=== PATIENT | male | born 1955 | race Caucasian/White ===

== ENCOUNTER 2017-11-20 08:38 | Emergency (ER) | payer MEDICARE, OTHER, SELFPAY ==
[2017-11-20 08:39] VITALS: BP 137/68; PULSE 78; RESP 20; TEMP 36.7; O2SAT 97; BMI 32.8
--- NOTE | 2017-11-20 09:07 | ED.EXTPRO ---
HPI - Extremity Problem General Chief complaint: Extremity Problem,Nontraumatic Stated complaint: THINKS SOMEONE POISONED FOOD Time Seen by Provider: 11/20/17 08:43 Source: patient and RN notes reviewed Mode of arrival: ambulatory Limitations: no limitations History of Present Illness HPI Narrative: Patient is a 61-year-old male presents with a variety of complaints. His he feels over in fatigue he has been sleeping a lot more lately. Legs are swollen. He also feels like he may be within with arsenic. He does have some rambling speech but does not seem overly paranoid. He is clean and well dressed. He has no other complaints no chest pain shortness of breath on fevers. Related Data Home Medications Medication Instructions Recorded Confirmed amlodipine 10 mg PO QAM 11/20/17 11/20/17 clobetasol 1 applic TOPICAL BID 11/20/17 11/20/17 fluticasone 1 applic INTRANASAL DAILY 11/20/17 11/20/17 fluticasone-salmeterol [Advair 1 applic INHALATION QAM 11/20/17 11/20/17 Diskus] mupirocin 1 applic TOPICAL BID 11/20/17 11/20/17 Allergies Allergy/AdvReac Type Severity Reaction Status Date / Time No Known Drug Allergies Allergy Verified 11/20/17 09:50 Review of Systems Review of Systems All systems reviewed & are unremarkable except as noted in HPI and below Constitutional Denies chills, Denies fever(s), Reports lethargy, Reports malaise, Denies night sweats and Reports weakness Cardiovascular Denies chest pain, Denies irregular heart rhythm, Denies lightheadedness, Denies palpitations, Denies dyspnea, Denies dyspnea on exertion and Denies orthopnea Respiratory Denies cough, Denies dyspnea, Denies dyspnea on exertion and Denies wheezing Gastrointestinal Gastrointestinal: Denies abdominal pain, Denies change in bowel habits, Denies diarrhea, Denies nausea and Denies vomiting Musculoskeletal Denies back pain, Denies muscle weakness, Denies numbness and Denies tingling Neurologic Denies numbness, Denies tingling and Reports weakness Endocrine Denies palpitations Allergic/Immunologic Denies wheezing PFSH Medical History COPD (chronic obstructive pulmonary disease) (Acute) Hypertension (Acute) Surgical History History of tonsillectomy and adenoidectomy (Acute) Social History Smoking Status: Former smoker Exam Initial Vital Signs Initial Vital Signs: Vital Signs Temperature 98.0 F 11/20/17 08:39 Pulse Rate 78 11/20/17 08:39 Respiratory Rate 20 11/20/17 08:39 Blood Pressure 137/68 H 11/20/17 08:39 Pulse Oximetry 97 11/20/17 08:39 Const General: cooperative and well developed Nutritional Appearance: well nourished Orientation: alert, awake, oriented x3 and not confused HENMI Head: normal to inspection Ears: hearing grossly normal bilaterally Neck Neck: normal visual inspection, full ROM and no meningeal signs Chest Chest: normal inspection of the chest Resp Effort & Inspection: normal respiratory effort, able to speak in complete sentences, no respiratory distress and no use of accessory muscles Auscultation: clear to auscultation bilaterally, no rales, no rhonchi and no wheezes Cardio Rate: regular rate Rhythm: regular rhythm Heart Sounds: no click, no gallops, no murmurs and no rubs Pulses: normal peripheral pulses GI Inspection: non-distended Palpation: soft, no hepatosplenomegaly, No guarding, No pulsatile mass and No tender Auscultation: normal bowel sounds Skin General: erythema (Minimal on left leg chronic no streaking) Lesions: lesion noted (Left lower leg has multiple healing wounds which are chronic. Minimal erythema) Psych Appearance: grossly normal Speech and Movement: pressured speech (slightly) Mood: paranoid (Feels like he is being poisoned) Affect: normal affect Attitude: cooperative Thought Content: no hallucinations, no homicidality, no obsessions and suicidality Judgment: judgment good Course Orders Ordered: ED Orders 11/20/17 09:09 Rapid Drug Screen, Urine Stat Urinalysis and Microscopic Stat 11/20/17 09:17 Complete Blood Count AUTO DIFF Stat Comprehensive Metabolic Panel Stat Procalcitonin Stat Vital Signs - 8 hr 11/20/17 08:39 11/20/17 09:20 11/20/17 10:29 Temperature 98.0 F Pulse Rate 78 87 Pulse Rate [Bilateral Dorsalis Pedis] 80 Respiratory Rate 20 20 Blood Pressure 137/68 H 130/72 H Pulse Oximetry 97 94 MDM - Extremity (Nontraumatic) Lab Data Attestation: I reviewed the patient's lab results. Result diagrams: 11/20/17 09:17 11/20/17 09:17 Lab Results 11/20/17 11/20/17 11/20/17 Range/Units 09:09 09:09 09:17 WBC 10.9 (4.5-11.0) X10^3/uL RBC 5.18 (4.5-5.9) X10^6/uL Hgb 15.8 (13.5-17.5) g/dL Hct 45.2 (41-53) % MCV 87.3 (80-100) fL MCH 30.5 (26-34) PG MCHC 34.9 (30-36) % RDW 12.8 (11.6-14.8) % Plt Count 323 (150-400) X10^3/uL Neut % (Auto) 59.4 (50-75) % Lymph % (Auto) 22.6 L (25-40) % Donley % (Auto) 14.7 H (3-14) % Eos % (Auto) 2.8 (2-4) % Baso % (Auto) 0.5 (0-2) % Neut # (Auto) 6500 H (7733-3505) /uL Sodium (137-145) mmol/L Potassium (3.4-5.1) mmol/L Chloride (98-107) mmol/L Carbon Dioxide (22-32) mmol/L BUN (9-20) mg/dL Creatinine (0.66-1.25) mg/dL Estimated GFR (>60) mL/min BUN/Creatinine Ratio (6-22) Glucose (70-100) mg/dL Calcium (8.4-10.2) mg/dL Total Bilirubin (0.2-1.3) mg/dL AST (17-59) IU/L ALT (21-72) IU/L Alkaline Phosphatase (38-126) U/L Total Protein (6.3-8.2) g/dL Albumin (3.5-5.0) g/dL Globulin (1.7-4.1) g/dL Albumin/Globulin Ratio (1.0-2.8) Procalcitonin (<0.5) ng/mL Urine Color Yellow Urine Appearance Clear Urine pH 7.5 (4.5-8.0) Ur Specific Stacy 1.015 (1.000-1.035) Urine Protein Negative (Negative) Urine Glucose (UA) Negative (Negative) g/dL Urine Ketones Negative (NEGATIVE) Urine Occult Blood Negative (Negative) Urine Nitrate Negative (Negative) Urine Bilirubin Negative (NEGATIVE) Urine Urobilinogen 1.0 (0.2) E.U./dL Ur Leukocyte Esterase Negative (NEGATIVE) Urine RBC None seen (0-5/HPF) Urine WBC None seen (0-5/HPF) Urine Bacteria Occasional (0-1) (None) Ur Culture Indicated? Cult not indicated Micro UA Comment Not Reportable Urine Opiates Screen Positive H (Negative) Ur Oxycodone Screen Positive H (Negative) Urine Methadone Screen Negative (Negative) Ur Barbiturates Screen Negative (Negative) U Tricyclic Antidepress Negative (Negative) Ur Phencyclidine Scrn Negative (Negative) Ur Amphetamines Screen Negative (Negative) U Methamphetamines Scrn Negative (Negative) Ur MDMA Scrn (Ecstasy) Negative (Negative) U Benzodiazepines Scrn Negative (Negative) Urine Cocaine Screen Negative (Negative) U Marijuana (THC) Screen Negative (Negative) 11/20/17 11/20/17 Range/Units 09:17 09:17 WBC (4.5-11.0) X10^3/uL RBC (4.5-5.9) X10^6/uL Hgb (13.5-17.5) g/dL Hct (41-53) % MCV (80-100) fL MCH (26-34) PG MCHC (30-36) % RDW (11.6-14.8) % Plt Count (150-400) X10^3/uL Neut % (Auto) (50-75) % Lymph % (Auto) (25-40) % Donley % (Auto) (3-14) % Eos % (Auto) (2-4) % Baso % (Auto) (0-2) % Neut # (Auto) (1744-9199) /uL Sodium 141 (137-145) mmol/L Potassium 3.6 (3.4-5.1) mmol/L Chloride 96.0 L (98-107) mmol/L Carbon Dioxide 33.0 H (22-32) mmol/L BUN 14.0 (9-20) mg/dL Creatinine 0.60 L (0.66-1.25) mg/dL Estimated GFR > 60.0 (>60) mL/min BUN/Creatinine Ratio 23.3 H (6-22) Glucose 100 (70-100) mg/dL Calcium 9.6 (8.4-10.2) mg/dL Total Bilirubin 1.0 (0.2-1.3) mg/dL AST 39 (17-59) IU/L ALT 53 (21-72) IU/L Alkaline Phosphatase 110 (38-126) U/L Total Protein 8.3 H (6.3-8.2) g/dL Albumin 4.5 (3.5-5.0) g/dL Globulin 3.8 (1.7-4.1) g/dL Albumin/Globulin Ratio 1.2 (1.0-2.8) Procalcitonin < 0.05 (<0.5) ng/mL Urine Color Urine Appearance Urine pH (4.5-8.0) Ur Specific Stacy (1.000-1.035) Urine Protein (Negative) Urine Glucose (UA) (Negative) g/dL Urine Ketones (NEGATIVE) Urine Occult Blood (Negative) Urine Nitrate (Negative) Urine Bilirubin (NEGATIVE) Urine Urobilinogen (0.2) E.U./dL Ur Leukocyte Esterase (NEGATIVE) Urine RBC (0-5/HPF) Urine WBC (0-5/HPF) Urine Bacteria (None) Ur Culture Indicated? Micro UA Comment Urine Opiates Screen (Negative) Ur Oxycodone Screen (Negative) Urine Methadone Screen (Negative) Ur Barbiturates Screen (Negative) U Tricyclic Antidepress (Negative) Ur Phencyclidine Scrn (Negative) Ur Amphetamines Screen (Negative) U Methamphetamines Scrn (Negative) Ur MDMA Scrn (Ecstasy) (Negative) U Benzodiazepines Scrn (Negative) Urine Cocaine Screen (Negative) U Marijuana (THC) Screen (Negative) MDM Narrative Medical decision making narrative: He is slightly paranoid but this is not seem to be disabling him. Blood work is within normal limits. Lower extremities appear chronic and stable this is compared to previous notes exams. The patient is clinically sober, free from distracting injury, appears to have intact insight, judgment and reason. Does not meet criteria for involuntary hospitalization. Patient has the capacity to make decisions. I have given patient blood result. Also notified him that we do not test for arsenic. He understands he is agreeable to go. He denies any suicidal or homicidal ideation. 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 Discharge Plan Departure Patient Disposition: Home, Self-Care Clinical Impression: Lower extremity edema Discharge Date/Time: 11/20/17 10:31 Interventions: ED Discharge Assessment Last Done: 11/20/17 10:29 Instructions: DI for Peripheral Edema -- Bilateral Activity Restrictions/Additional Instructions: *You have been diagnosed with lower extremity edema *What to do: if you want further testing please discussed with your primary care provider. blood work today does not show any sign of infection or abnormality *Take medications as directed *Follow up with your primary care provider in 2-3 days *Return to ER if you should have any new, worsening or concerning symptoms Prescriptions: No Action amlodipine 10 mg tablet 10 mg PO QAM RF: 0 fluticasone-salmeterol [Advair Diskus] 500-50 mcg/dose blister with device 1 applic Inhalation QAM RF: 0 mupirocin 2 % ointment 1 applic Topical BID RF: 0 clobetasol 0.05 % ointment 1 applic Topical BID RF: 0 fluticasone 50 mcg/actuation spray,suspension 1 applic Intranasal DAILY RF: 0 Referrals: Brooke Lynn MD [Primary Care Provider] -
[2017-11-20 09:20] VITALS: PULSE 80
[2017-11-20 09:26] LABS: Add Manual Diff / Slide Review NO; Basophils Percent Auto 0.5 % (0-2); Eosinophils Percent Auto 2.8 % (2-4); Hematocrit 45.2 % (41-53); Hemoglobin 15.8 g/dL (13.5-17.5); Lymphocytes Percent Auto 22.6 % (25-40); Mean Corpuscular HGB Conc 34.9 % (30-36); Mean Corpuscular Hemoglobin 30.5 PG (26-34); Mean Corpuscular Volume 87.3 fL (80-100); Monocytes Percent Auto 14.7 % (3-14); Neutrophils Absolute Auto 6500 /uL (3000-5900); Neutrophils Percent Auto 59.4 % (50-75); Platelet Count 323 X10^3/uL (150-400); Red Blood Cell Count 5.18 X10^6/uL (4.5-5.9); Red Cell Distribution Width 12.8 % (11.6-14.8); White Blood Cell Count 10.9 X10^3/uL (4.5-11.0)
--- NOTE | 2017-11-20 09:30 | PC.NURSE ---
Pt laughing and interactive but states he feels restless and prefers to walk outside 'where the weather is good'. Verbalized he would wait to leave until labs came back. Encouraged to return to ED for any difficulty.
[2017-11-20 09:35] LABS: RBC Urine None Seen (0-5/HPF); WBC Urine None Seen (0-5/HPF)
[2017-11-20 09:36] LABS: Alanine Aminotransferase 53 IU/L (21-72); Albumin 4.5 g/dL (3.5-5.0); Albumin Globulin Ratio 1.2 (1.0-2.8); Alkaline Phosphatase 110 U/L (38-126); Aspartate Aminotransferase 39 IU/L (17-59); BUN Creatinine Ratio 23.3 (6-22); Calcium 9.6 mg/dL (8.4-10.2); Estimated Glomerular Filt Rate > 60.0 mL/min (>60); Globulin 3.8 g/dL (1.7-4.1); Glucose 100 mg/dL (70-100); HEMOLYSIS 18 (0-50); Potassium 3.6 mmol/L (3.4-5.1); Sodium 141 mmol/L (137-145); Total Protein 8.3 g/dL (6.3-8.2)
[2017-11-20 09:41] LABS: Appearance Urine UA CLEAR; Bilirubin Urine UA NEGATIVE (NEGATIVE); Color Urine UA YELLOW; Glucose Urine UA NEGATIVE (Negative); Ketones Urine UA NEGATIVE (NEGATIVE); Leukocyte Esterase Urine UA NEGATIVE (NEGATIVE); Nitrite Urine UA Negative (Negative); Occult Blood Urine UA NEGATIVE (Negative); Protein Urine UA NEGATIVE (Negative); Specific Gravity Urine UA 1.015 (1.000-1.035); pH Urine UA 7.5 (4.5-8.0)
[2017-11-20 09:43] LABS: Urine Amphetamines Negative (Negative); Urine Barbiturates Negative (Negative); Urine Benzodiazepines Negative (Negative); Urine Cocaine Negative (Negative); Urine MDMA Negative (Negative); Urine Methadone Negative (Negative); Urine Methamphetamines Negative (Negative); Urine Morphine/Opi cutoff 2000 Positive (Negative); Urine Oxycodone Positive (Negative); Urine Phencyclidine Negative (Negative); Urine Tetrahydrocannabinol Negative (Negative); Urine Tricyclic Antidepressant Negative (Negative)
[2017-11-20 09:52] LABS: Procalcitonin < 0.05 ng/mL (<0.5)
[2017-11-20 10:00] LABS: Bacteria Urine Occasional (0-1); Culture Indicated Urine Cult Not Indicated
[2017-11-20 10:29] VITALS: BP 130/72; PULSE 87; RESP 20; O2SAT 94
== END 2017-11-20 10:31 | disposition home or self-care (01) ==
PROVIDERS: Emergency Provider Emergency Medicine; PCP Internal Medicine
DX: R60.0 Localized edema (principal)
CPT/HCPCS: 36415; 80053; 80305; 81001; 84145; 85025; 99283

== ENCOUNTER → 2019-09-07 06:45 | Outpatient (CLI) | payer MEDICARE, OTHER, SELFPAY ==
--- NOTE | 2019-09-07 | DI.RAD.S_ITS ---
PROCEDURE: XR KNEE RT 3V INDICATIONS: bilateral knee pain TECHNIQUE: 3 views of the knee were acquired. COMPARISON: [facility], CR, XR KNEE LT 3V, 09/07/2019, 6:01. FINDINGS: Bones: No fractures or dislocations. No suspicious bony lesions. Soft tissues: No joint effusion. No suspicious soft tissue calcifications. IMPRESSION: Normal for age, source of current right knee pain symptoms is not seen. Dictated by: Daniele Guzman M.D. on 09/07/2019 at 8:21 Approved by: Daniele Guzman M.D. on 09/07/2019 at 8:22
--- NOTE | 2019-09-07 | DI.RAD.S_ITS ---
PROCEDURE: XR KNEE LT 3V INDICATIONS: bilateral knee pain TECHNIQUE: 3 views of the knee were acquired. COMPARISON: [facility], CR, XR KNEE RT 3V, 09/07/2019, 5:59. FINDINGS: Bones: No fractures or dislocations. No suspicious bony lesions. Soft tissues: No joint effusion. No suspicious soft tissue calcifications. IMPRESSION: Normal for age, source of current left knee pain symptoms is not seen. Dictated by: Daniele Guzman M.D. on 09/07/2019 at 8:22 Approved by: Daniele Guzman M.D. on 09/07/2019 at 8:22
== END ==
PROVIDERS: PCP Internal Medicine; Referring Provider Family Medicine; Visit Provider Family Medicine
DX: M25.561 Pain in right knee (principal); M25.562 Pain in left knee
CPT/HCPCS: 73562

== ENCOUNTER 2020-02-28 07:51 | Emergency (ER) | payer MEDICARE, OTHER, SELFPAY ==
[2020-02-28 07:55] VITALS: BP 185/84; PULSE 80; RESP 20; TEMP 36.9; O2SAT 98; BMI 33.6
--- NOTE | 2020-02-28 08:16 | ED.EXTPRO ---
HPI - Extremity Problem General Chief complaint: Extremity Problem,Nontraumatic Stated complaint: something blocking veins in legs Time Seen by Provider: 02/28/20 08:09 Source: patient Mode of arrival: Ambulatory Limitations: no limitations History of Present Illness HPI Narrative: Patient concerned for blood clot in his legs. Ongoing swelling in both legs and feet and ankles for the past year. Does have a primary care physician but has never had any ultrasound of the legs. Denies any previous DVT or PE. Denies any chest pain or dyspnea. Denies any recent injury. No immobilization. Patient states he has been instructed in the past to keep his legs elevated when at rest to reduce edema. Is on Lasix as well. Denies denies any chest pain or dyspnea. Blood pressure noted. Patient does take blood pressure medication. However patient is very energetic and excited and very talkative at this time. Will recheck blood pressure Related Data Home Medications Medication Instructions Recorded Confirmed amlodipine 10 mg PO QAM 11/20/17 11/20/17 clobetasol 1 applic TOPICAL BID 11/20/17 11/20/17 fluticasone propion-salmeterol 1 applic INHALATION QAM 11/20/17 11/20/17 [Advair Diskus] fluticasone propionate 1 applic INTRANASAL DAILY 11/20/17 11/20/17 mupirocin 1 applic TOPICAL BID 11/20/17 11/20/17 Allergies Allergy/AdvReac Type Severity Reaction Status Date / Time No Known Drug Allergies Allergy Verified 11/20/17 09:50 Review of Systems Review of Systems Narrative: GENERAL: Denies chills, fatigue, malaise, fever, sweats. HEENT: Denies sinus pain, ear pain, sore throat, difficulty swallowing, dizziness. RESPIRATORY: Denies dyspnea, cough, wheezing, hemoptysis, sputum. CARDIOVASCULAR: Denies chest pain, palpitations, orthopnea, complains of leg edema GASTROINTESTINAL: Denies nausea, vomiting, abdominal pain, diarrhea, constipation, melena. : Denies dysuria, frequency, incontinence, hematuria, urinary retention. MUSCULOSKELETAL: denies weakness, joint pain, or bony pain SKIN: Denies rash, skin lesions, or other NEUROLOGIC: Denies weakness, headache, numbness, change in speech, confusion, seizures, incoordination. PSYCHIATRIC: No concerning psychosocial issues. ROS Unobtainable: All systems reviewed & are unremarkable except as noted in HPI and below Patient History Medical History COPD (chronic obstructive pulmonary disease) (Acute) Hypertension (Acute) Surgical History History of tonsillectomy and adenoidectomy (Acute) Social History Smoking Status: Former smoker Smoking Status: Former smoker Substance Use Type: does not use Exam Narrative Exam Narrative: GENERAL: patient appears stated age. Well-nourished, well-developed patient, in no distress, not toxic, patient wearing shorts. Shoes and socks off HEAD: Atraumatic. Normocephalic. EYES: Pupils equal round and reactive. Extraocular motions intact. No scleral icterus. No injection or drainage. ENT: Nose without bleeding, purulent drainage. Throat without erythema, tonsillar hypertrophy or exudate. Airway patent. NECK: Trachea midline. Non tender CARDIOVASCULAR: Regular rate and rhythm without murmurs, gallops, or rubs. RESPIRATORY: Clear to auscultation. Breath sounds equal bilaterally. No wheezes, rales, or rhonchi. GASTROINTESTINAL: Abdomen soft, non-tender, nondistended. EXTREMITIES: Bilateral knees to toes exposed. Legs and feet grossly symmetric. No erythema induration/rash. There is 2+ pedal edema at the ankle and feet. Strong bilateral patellar reflexes as well as pedal pulses. No palpable cords on the calf. No pain with Homans or Phillips test. Legs and feet warm soft and pink. Light touch intact in feet and toes. Nontender ankles. Patient uses a cane daily/chronically for chronic low back pain. Able to stand and bear weight and uses his cane as routine. Tested at bedside BACK: Nontender without deformity or crepitance. No flank tenderness. NEURO: AOx3. SKIN: No rash or erythema of visible areas PSYCH: Not anxious, is cooperative Initial Vital Signs Initial Vital Signs: Vital Signs Temperature 98.5 F 02/28/20 07:55 Pulse Rate 80 02/28/20 07:55 Respiratory Rate 20 02/28/20 07:55 Blood Pressure 185/84 H 02/28/20 07:55 Pulse Oximetry 98 02/28/20 07:55 Course Orders Ordered: ED Orders 02/28/20 08:15 US periph venous low extrem bi Stat Reevaluation(s) Reevaluation #1: Spoke with patient results of Doppler. At this time this is chronic ongoing for 1 year and he agrees appropriate for follow-up with family physician. This is not acute. Time: 09:21 Reevaluation #2: Blood pressure improved 141/73, patient much more relaxed Time: 09:54 Vital Signs Vital signs: Vital Signs - 8 hr 02/28/20 07:55 Temperature 98.5 F Pulse Rate 80 Respiratory Rate 20 Blood Pressure 185/84 H Pulse Oximetry 98 MDM - Extremity (Nontraumatic) Differential Diagnosis Differential diagnosis: Likely superficial thrombophlebitis, lower extremity edema and deep vein thrombosis of lower extremity Imaging Data US - DVT: Radiologist's Impression: [address] [address] Ultrasound Report Signed Patient: Ricardo Chen [facility]#: [id number] : 8Acct:[id number] Age/Sex: 64 / MDate of Service: 02/28/20 Loc: ED Accession Number: [id number] Procedure: US periph venous low extrem bi Ordering Provider: Leoncio Garcia MD PROCEDURE: US PERIPH VENOUS LOW EXTREM BI INDICATIONS: EDEMA TECHNIQUE: Real-time imaging, as well as color and pulse Doppler interrogation, were performed of the deep veins of both legs from the inguinal ligament to the popliteal fossa. COMPARISON: None. FINDINGS: Right: The common femoral, femoral and popliteal veins are normally compressible, and free of intraluminal thrombus. Color and pulse Doppler demonstrate normal phasic intravascular flow. There is normal augmentation response to distal compression maneuver. Left: The common femoral, femoral and popliteal veins are normally compressible, and free of intraluminal thrombus. Color and pulse Doppler demonstrate normal phasic intravascular flow. There is normal augmentation response to distal compression maneuver. IMPRESSION: 1. No DVT in either lower extremity. Dictated by: Pat Bolanos M.D. on 02/28/2020 at 9:07 Approved by: Pat Bolanos M.D. on 02/28/2020 at 9:11 MDM Narrative Medical decision making narrative: No blood work indicated this time. Patient for evaluation of blood clot. This is ongoing and chronic. No signs infection Discharge Plan Departure Patient Disposition: Home Clinical Impression: Lower extremity edema Hypertension Qualifiers: Hypertension type: essential hypertension Qualified Code(s): I10 - Essential (primary) hypertension Discharge Date/Time: 02/28/20 10:02 Instructions: DI for Peripheral Edema -- Bilateral Activity Restrictions/Additional Instructions: Please have your blood pressure recheck by your family physician this week. Continue home medications. You may need referral to vascular surgeon by a family physician for swelling in your feet and legs. Return if worse or if any concerns or questions. Prescriptions: No Action amlodipine 10 mg tablet 10 mg PO QAM RF: 0 fluticasone propion-salmeterol [Advair Diskus] 500-50 mcg/dose blister with device 1 applic Inhalation QAM RF: 0 mupirocin 2 % ointment 1 applic Topical BID RF: 0 clobetasol 0.05 % ointment 1 applic Topical BID RF: 0 fluticasone propionate 50 mcg/actuation spray,suspension 1 applic Intranasal DAILY RF: 0 Referrals: Brooke Lynn MD [Primary Care Provider] -
[2020-02-28 10:01] VITALS: BP 141/73; PULSE 86; RESP 18; O2SAT 96
== END 2020-02-28 10:02 | disposition home or self-care (01) ==
PROVIDERS: Emergency Provider Emergency Medicine; PCP Internal Medicine
DX: R60.0 Localized edema (principal); I10 Essential (primary) hypertension
CPT/HCPCS: 93970; 99283

== ENCOUNTER → 2020-03-31 07:18 | Outpatient (CLI) | payer MEDICARE, OTHER, SELFPAY ==
--- NOTE | 2020-03-31 | DI.US.S_ITS ---
PROCEDURE: US PERIP VENOUS LOW EXTREM BI INDICATIONS: PVD TECHNIQUE: Real-time imaging, as well as color and pulse Doppler interrogation, were performed of the deep veins of both legs from the inguinal ligament to the popliteal fossa. COMPARISON: [facility], [facility] VENOUS LOW EXTREM BI, 02/28/2020, 8:49. FINDINGS: Right: The common femoral, femoral and popliteal veins are normally compressible, and free of intraluminal thrombus. Color and pulse Doppler demonstrate normal phasic intravascular flow. There is normal augmentation response to distal compression maneuver. Left: The common femoral, femoral and popliteal veins are normally compressible, and free of intraluminal thrombus. Color and pulse Doppler demonstrate normal phasic intravascular flow. There is normal augmentation response to distal compression maneuver. IMPRESSION: No deep venous thrombosis identified within either the left or right lower extremities. Dictated by: Ryan Coleman [facility] Interpreted: Rosangela Hamilton MD on 03/31/2020 at 10:25 Approved by: Rosangela Hamilton MD, PhD on 03/31/2020 at 11:44
== END ==
PROVIDERS: PCP Family Medicine; Referring Provider Family Medicine; Visit Provider Family Medicine
DX: I73.9 Peripheral vascular disease, unspecified (principal)
CPT/HCPCS: 93970

== ENCOUNTER → 2020-04-07 14:53 | Outpatient (CLI) | payer MEDICARE, OTHER, SELFPAY ==
--- NOTE | 2020-04-07 | DI.US.S_ITS ---
PROCEDURE: US ABDOMEN COMPLETE INDICATIONS: Abnormal results of liver function studies TECHNIQUE: Real-time scanning was performed of the abdominal and retroperitoneal organs, with image documentation. COMPARISON: None. FINDINGS: Liver: Within normal limits in size. Increased in echogenicity. Gallbladder: Nondilated. No stones or sludge. Normal gallbladder wall thickness. No pericholecystic fluid. Negative sonographic Olivares's sign. Biliary ducts: Intrahepatic bile ducts are non-dilated. Extrahepatic bile duct caliber measures 3 mm. Normal is 6-7 mm or less in diameter, or 10 mm or less post-cholecystectomy. Pancreas: Visualized portions of the pancreas are sonographically normal. Spleen: Spleen is normal in size and homogeneous in echotexture. Kidneys: Kidneys are normal in size and echotexture. Right kidney measures 11.9 cm long; left kidney measures 11.9 cm long. No hydronephrosis or nephrolithiasis. No solid masses. Small simple right renal cysts measuring 2.1 cm and 2 cm. Aorta: Visualized aorta is normal in caliber at less than 3 cm. Iliacs: Proximal common iliac arteries are normal in caliber at less than 2.5 cm. IVC: Intrahepatic inferior vena cava is patent. Miscellaneous: No free abdominal fluid. IMPRESSION: 1. Increased hepatic echogenicity most consistent with hepatic steatosis. Other forms of hepatocellular disease could have similar appearance. 2. No acute cholecystitis. No gallstones. 3. No free fluid. Dictated by: Luis Ingram M.D. on 04/07/2020 at 17:16 Approved by: Luis Ingram M.D. on 04/07/2020 at 17:24
== END ==
PROVIDERS: PCP Family Medicine; Referring Provider Family Medicine; Visit Provider Family Medicine
DX: R94.5 Abnormal results of liver function studies (principal); K76.0 Fatty (change of) liver, not elsewhere classified
CPT/HCPCS: 76700

== ENCOUNTER 2020-06-13 07:48 | Emergency (ER) | payer MEDICARE, OTHER, SELFPAY ==
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
[2020-06-13 08:10] VITALS: BP 138/101; PULSE 107; RESP 22; TEMP 37; O2SAT 96; BMI 36.3
--- NOTE | 2020-06-13 08:15 | DI.RAD.S_ITS ---
PROCEDURE: XR CHEST 1V INDICATIONS: leg swelling, TECHNIQUE: One view of the chest was acquired. COMPARISON: [facility], CT, ABDOMEN W&W/O CONTRAST, 03/15/2013, 7:35. FINDINGS: Surgical changes and devices: None. Lungs and pleura: Minimal bibasilar airspace opacity. No pleural effusions or pneumothorax. Mediastinum: Mediastinal contours appear normal. Heart size is prominent. Bones and chest wall: No suspicious bony lesions. Overlying soft tissues appear unremarkable. IMPRESSION: Prominent heart size. No CHF demonstrated. Minimal bibasilar airspace opacity. Favor atelectasis. Dictated by: Luis Ingram M.D. on 06/13/2020 at 7:57 Approved by: Luis Ingram M.D. on 06/13/2020 at 8:00
[2020-06-13 08:39] LABS: Add Manual Diff / Slide Review NO; Basophils Absolute Auto 0 /uL (0-100); Basophils Percent Auto 0.4 % (0-2); Eosinophils Absolute Auto 0 /uL (0-450); Eosinophils Percent Auto 0.2 % (2-4); Hematocrit 48.6 % (41-53); Hemoglobin 16.9 g/dL (13.5-17.5); Lymphocytes Absolute Auto 1300 /uL (1100-4500); Lymphocytes Percent Auto 12.1 % (25-40); Mean Corpuscular HGB Conc 34.7 % (30-36); Mean Corpuscular Hemoglobin 31.1 PG (26-34); Mean Corpuscular Volume 89.4 fL (80-100); Monocytes Absolute Auto 1600 /uL (0-900); Monocytes Percent Auto 14.9 % (3-14); Neutrophils Absolute Auto 7600 /uL (1500-7000); Neutrophils Percent Auto 72.4 % (50-75); Platelet Count 348 X10^3/uL (150-400); Red Blood Cell Count 5.43 X10^6/uL (4.5-5.9); Red Cell Distribution Width 12.6 % (11.6-14.8); White Blood Cell Count 10.4 X10^3/uL (4.5-11.0)
[2020-06-13 08:44] LABS: INR 1.1 (0.9-1.3)
[2020-06-13 08:47] LABS: PTT Partial Thromboplastin Tim 30 SECONDS (26.4-36.2)
[2020-06-13 08:54] LABS: Creatine Kinase 88 U/L (55-170)
[2020-06-13 08:55] LABS: Alanine Aminotransferase 80 IU/L (<50); Albumin 4.5 g/dL (3.5-5.0); Albumin Globulin Ratio 1.1 (1.0-2.8); Alkaline Phosphatase 140 U/L (38-126); Aspartate Aminotransferase 52 IU/L (17-59); BUN Creatinine Ratio 17.6 (6-22); Blood Urea Nitrogen 12 mg/dL (9-20); Calcium 9.4 mg/dL (8.4-10.2); Carbon Dioxide 33 mmol/L (22-32); Chloride 97 mmol/L (98-107); Estimated Glomerular Filt Rate > 60.0 mL/min (>60); Glucose 109 mg/dL (80-110); HEMOLYSIS 39 (0-50); Potassium 3.5 mmol/L (3.4-5.1); Sodium 136 mmol/L (137-145); Total Protein 8.5 g/dL (6.3-8.2)
[2020-06-13 09:02] VITALS: PULSE 97; O2SAT 94
[2020-06-13 09:02] LABS: NT-proBNP (BNP-Adult 18+) 95 pg/mL (<125)
[2020-06-13 09:03] VITALS: BP 140/75; PULSE 94; O2SAT 95
[2020-06-13 09:05] LABS: Troponin I < 0.012 ng/mL (0.01-0.034)
[2020-06-13 09:10] LABS: Procalcitonin < 0.05 ng/mL (<0.5)
[2020-06-13] MEDS: FUROSEMIDE 40 MG/4 ML VIAL IV (09:21)
[2020-06-13 09:31] VITALS: BP 121/73; PULSE 90; RESP 18; O2SAT 94
== END 2020-06-13 09:32 | disposition home or self-care (01) ==
PROVIDERS: Emergency Provider Emergency Medicine; PCP Family Medicine
DX: R60.0 Localized edema (principal); J44.9 Chronic obstructive pulmonary disease, unspecified; I10 Essential (primary) hypertension; R06.00 Dyspnea, unspecified
CPT/HCPCS: 36415; 71045; 80053; 81003; 82550; 83735; 83880; 84145; 84484; 85025; 85610; 85730; 93005; 93010; 96374; 99284; J1940

== ENCOUNTER 2020-11-02 19:51 | Emergency (ER) | payer MEDICARE, OTHER, SELFPAY ==
[2020-11-02 20:01] VITALS: BP 172/105; PULSE 102; RESP 20; TEMP 36.8; O2SAT 96; BMI 35.5
[2020-11-02 22:13] VITALS: BP 143/77; PULSE 95; RESP 18; O2SAT 97
== END 2020-11-03 00:13 | disposition left against medical advice (07) ==
PROVIDERS: Emergency Provider Emergency Medicine; PCP Family Medicine
CPT/HCPCS: 99281

== ENCOUNTER 2021-05-07 00:05 | Emergency (ER) | payer MEDICARE, OTHER, SELFPAY ==
[2021-05-07 00:16] VITALS: BP 173/98; PULSE 100; RESP 20; TEMP 36.8; O2SAT 96
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
== END 2021-05-07 01:07 | disposition home or self-care (01) ==
PROVIDERS: Emergency Provider Emergency Medicine; PCP Family Medicine
DX: R20.8 Other disturbances of skin sensation (principal); Z71.1 Person with feared health complaint in whom no diagnosis is made
CPT/HCPCS: 99281

== ENCOUNTER 2022-04-01 16:57 | Emergency (ER) | payer MEDICARE, OTHER, SELFPAY ==
[2022-04-01] VITALS (10 sets, daily range): BP systolic 136–157; BP diastolic 60–79; PULSE 94–125; RESP 12–28; TEMP 37.2–39.4; O2SAT 96–99; BMI 35.5
--- NOTE | 2022-04-01 17:05 | DI.RAD.S_ITS ---
PROCEDURE: XR CHEST 1V INDICATIONS: sepsis TECHNIQUE: One view of the chest was acquired. COMPARISON: [facility], CR, XR CHEST 1V, 06/13/2020, 8:42. FINDINGS: Surgical changes and devices: None. Lungs and pleura: Lungs are clear. No pleural effusions or pneumothorax. Mediastinum: Mediastinal contours appear normal. Heart size is mildly enlarged. Bones and chest wall: No suspicious bony lesions. Overlying soft tissues appear unremarkable. IMPRESSION: Mild cardiomegaly. No acute cardiopulmonary abnormality seen. No focal airspace disease. Dictated by: Srinivasan Guerra M.D. on 04/01/2022 at 18:02 Approved by: Srinivasan Guerra M.D. on 04/01/2022 at 18:03
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
[2022-04-01 17:25] LABS: Add Manual Diff / Slide Review NO; Basophils Absolute Auto 0 /uL (0-100); Basophils Percent Auto 0.4 % (0-2); Eosinophils Absolute Auto 100 /uL (0-450); Eosinophils Percent Auto 1.2 % (2-4); Hematocrit 43.3 % (41-53); Hemoglobin 15.3 g/dL (13.5-17.5); Lymphocytes Absolute Auto 300 /uL (1100-4500); Lymphocytes Percent Auto 2.9 % (25-40); Mean Corpuscular HGB Conc 35.3 % (30-36); Mean Corpuscular Hemoglobin 30.6 PG (26-34); Mean Corpuscular Volume 86.8 fL (80-100); Monocytes Absolute Auto 1500 /uL (0-900); Monocytes Percent Auto 14.5 % (3-14); Neutrophils Absolute Auto 8600 /uL (1500-7000); Platelet Count 312 X10^3/uL (150-400); Red Blood Cell Count 4.99 X10^6/uL (4.5-5.9); Red Cell Distribution Width 12.5 % (11.6-14.8); White Blood Cell Count 10.6 X10^3/uL (4.5-11.0)
[2022-04-01] MEDS: LACTATED RINGERS 2,993.7 ML 997.9 ML IV (17:25)
[2022-04-01] MEDS: IBUPROFEN 400 MG TABLET 600 MG PO (17:26)
[2022-04-01] MEDS: cefTRIAXone 2,000 MG in SODIUM CHLORIDE 0.9% 100 ML 200 MG IV (17:43)
[2022-04-01] MEDS: GABAPENTIN 600 MG TABLET 1200 MG PO (17:47)
[2022-04-01] MEDS: VANCOMYCIN 1,000 MG/200 ML PIGGYBACK 200 MG IV (17:52)
[2022-04-01 17:55] LABS: Lactate (Lactic Acid) 2.3 mmol/L (0.7-2.1)
[2022-04-01 17:58] LABS: Alanine Aminotransferase 199 IU/L (<50); Albumin 4.2 g/dL (3.5-5.0); Albumin Globulin Ratio 1.2 (1.0-2.8); Alkaline Phosphatase 123 U/L (38-126); Aspartate Aminotransferase 191 IU/L (17-59); BUN Creatinine Ratio 16.5 (6-22); Bilirubin Total 0.6 mg/dL (0.2-1.3); Blood Urea Nitrogen 13 mg/dL (9-20); Calcium 9.4 mg/dL (8.4-10.2); Carbon Dioxide 29 mmol/L (22-32); Chloride 96 mmol/L (98-107); Creatine Kinase 52 U/L (55-170); Estimated Glomerular Filt Rate > 60 mL/min (>60); Globulin 3.6 g/dL (1.7-4.1); Glucose 217 mg/dL (80-110); HEMOLYSIS < 15 (0-50); Potassium 3.5 mmol/L (3.4-5.1); Sodium 136 mmol/L (137-145); Total Protein 7.8 g/dL (6.3-8.2)
[2022-04-01 18:09] LABS: Troponin I < 0.012 ng/mL (0.01-0.034)
[2022-04-01 18:13] LABS: Procalcitonin 0.16 ng/mL (<0.5)
[2022-04-01 18:20] LABS: Adenovirus Detected (Not Detect); B. parapertussis Not Detected (Not Detecte); Bordetella pertussis Not Detected (Not Detecte); Chlamydophila pneumoniae Not Detected (Not Detect); Coronavirus 229E Not Detected (Not Detect); Coronavirus HKU1 Not Detected (Not Detect); Coronavirus NL 63 Not Detected (Not Detect); Coronavirus OC43 Not Detected (Not Detect); Human Metapneumovirus Not Detected (Not Detect); Human Rhinovirus/Enterovirus Not Detected (Not Detect); Influenza A Not Detected (Not Detect); Influenza B Not Detected (Not Detect); Mycoplasma pneumoniae Not Detected (Not Detect); Parainfluenza Virus 1 Not Detected (Not Detect); Parainfluenza Virus 2 Not Detected (Not Detect); Parainfluenza Virus 3 Not Detected (Not Detect); Parainfluenza Virus 4 Not Detected (Not Detect); Respiratory Syncytial Virus Not Detected (Not Detect)
[2022-04-01 18:21] LABS: SARS- CoV-2 Detected (Not Detecte)
[2022-04-01 19:18] LABS: Reflexed Lactate in 2 Hours Y
[2022-04-01 19:18] LABS: Appearance Urine UA CLEAR; Bilirubin Urine UA NEGATIVE (NEGATIVE); Color Urine UA YELLOW; Glucose Urine UA NEGATIVE (Negative); Ketones Urine UA NEGATIVE (NEGATIVE); Leukocyte Esterase Urine UA NEGATIVE (NEGATIVE); Nitrite Urine UA NEGATIVE (Negative); Occult Blood Urine UA NEGATIVE (Negative); Protein Urine UA NEGATIVE (Negative); Specific Gravity Urine UA <=1.005 (1.000-1.035); Urobilinogen Urine UA 0.2 E.U./dL (0.2)
[2022-04-01 19:29] LABS: RBC Urine None Seen (0-5/HPF); WBC Urine None Seen (0-5/HPF)
[2022-04-01 19:30] LABS: Bacteria Urine None Seen; Calcium Oxalate Crystals Urine Moderate; Culture Indicated Urine Cult Not Indicated
[2022-04-01 20:35] LABS: Lactate 2HR (Lactic Acid Rflx) 1.2 mmol/L (0.7-2.1)
== END 2022-04-01 21:49 | disposition home or self-care (01) ==
PROVIDERS: Emergency Medicine; Emergency Provider Emergency Medicine; PCP Family Medicine
DX: U07.1 COVID-19 (principal); B34.0 Adenovirus infection, unspecified
CPT/HCPCS: 36415; 71045; 80053; 81001; 82550; 83605; 84145; 84484; 85025; 87040; 87633; 93005; 96365; 96366; 96368; 99284; J0696

== ENCOUNTER 2023-01-01 15:17 | Emergency (ER) | payer MEDICARE, OTHER, SELFPAY ==
[2023-01-01 15:31] VITALS: BP 141/71; PULSE 90; RESP 18; TEMP 37.2; O2SAT 96; BMI 34.0
[2023-01-01 17:42] VITALS: BP 134/72; PULSE 91; TEMP 37.1; O2SAT 95
== END 2023-01-01 18:59 | disposition left against medical advice (07) ==
PROVIDERS: Emergency Provider Emergency Medicine; PCP Family Medicine
CPT/HCPCS: 99281

== ENCOUNTER 2023-05-15 20:38 | Emergency (ER) | payer MEDICARE, OTHER, SELFPAY ==
[2023-05-15 20:42] VITALS: BP 152/115; PULSE 90; RESP 16; TEMP 36.3; O2SAT 97; BMI 34.7
[2023-05-16] VITALS (7 sets, daily range): BP systolic 131–169; BP diastolic 76–98; PULSE 84–93; RESP 16–18; TEMP 36.7; O2SAT 95–98
[2023-05-16 00:05] LABS: Add Manual Diff / Slide Review NO; Basophils Absolute Auto 100 /uL (0-100); Basophils Percent Auto 0.5 % (0-2); Eosinophils Absolute Auto 200 /uL (0-450); Eosinophils Percent Auto 1.3 % (2-4); Hematocrit 50.3 % (41-53); Hemoglobin 17.5 g/dL (13.5-17.5); Lymphocytes Absolute Auto 2100 /uL (1100-4500); Lymphocytes Percent Auto 15.4 % (25-40); Mean Corpuscular HGB Conc 34.8 % (30-36); Mean Corpuscular Hemoglobin 30.6 PG (26-34); Monocytes Absolute Auto 1500 /uL (0-900); Monocytes Percent Auto 11.4 % (3-14); Neutrophils Absolute Auto 9500 /uL (1500-7000); Neutrophils Percent Auto 71.4 % (50-75); Platelet Count 375 X10^3/uL (150-400); Red Blood Cell Count 5.72 X10^6/uL (4.5-5.9); White Blood Cell Count 13.4 X10^3/uL (4.5-11.0)
[2023-05-16 00:17] LABS: Alanine Aminotransferase 82 IU/L (<50); Albumin Globulin Ratio 1.1 (1.0-2.8); Alkaline Phosphatase 107 U/L (38-126); Aspartate Aminotransferase 52 IU/L (17-59); BUN Creatinine Ratio 46.2 (6-22); Bilirubin Total 0.8 mg/dL (0.2-1.3); Blood Urea Nitrogen 30 mg/dL (9-20); Calcium 10.3 mg/dL (8.4-10.2); Carbon Dioxide 31 mmol/L (22-32); Chloride 95 mmol/L (98-107); Estimated Glomerular Filt Rate > 60 mL/min (>60); Globulin 4.6 g/dL (1.7-4.1); Glucose 106 mg/dL (80-110); HEMOLYSIS 22 (0-50); Potassium 3.9 mmol/L (3.4-5.1); Sodium 139 mmol/L (137-145); Total Protein 9.6 g/dL (6.3-8.2)
--- NOTE | 2023-05-16 02:00 | ED_ITS ---
HPI - Skin/Abscess/Foreign Bdy General Chief complaint: Skin/Abscess/Foreign Body Stated complaint: bilateral lower ext. 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 He was seen at [facility] on May 13 for the same. Was recommended that he continue his Lasix, he was given 5 days of Keflex and recommended that he use some Eucerin. Earlier this year he did have a lower extremity vascular ultrasound studies that showed no acute arterial stenoses. 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 He is tangential that can be refocused. He is not complaining of chest pain, dyspnea, orthopnea, fevers, cough, chills. No dysuria or BPH symptoms Related Data Home Medications Medication Instructions Recorded Confirmed amlodipine 10 mg tablet 10 mg PO QAM 11/20/17 04/01/22 clobetasol 0.05 % topical ointment 1 applic topical BID 11/20/17 04/01/22 fluticasone propionate 50 1 applic intranasal DAILY 11/20/17 04/01/22 mcg/actuation nasal spray,suspension mupirocin 2 % topical ointment 1 applic topical BID 11/20/17 11/20/17 desonide 0.05 % lotion topical 04/01/22 duloxetine 30 mg capsule,delayed 30 mg PO DAILY 04/01/22 04/01/22 release gabapentin 600 mg tablet 1,200 mg PO TID 04/01/22 04/01/22 hydrochlorothiazide 25 mg tablet 25 mg PO DAILY 04/01/22 04/01/22 lidocaine 5 % topical patch patch 04/01/22 oxycodone 5 mg capsule See Rx Instructions .Route .COMPLEX 04/01/22 04/01/22 tapentadol 50 mg tablet,extended 50 mg PO DAILY 04/01/22 04/01/22 release,12 hr (Nucynta ER) Previous Rx's Medication Instructions Recorded furosemide 20 mg tablet 20 mg PO DAILY #30 tabs 05/16/23 Allergies Allergy/AdvReac Type Severity Reaction Status Date / Time No Known Drug Allergies Allergy Verified 11/20/17 09:50 Review of Systems Review of Systems Narrative: Pertinent positive and negative findings as per HPI Patient History Medical History (Updated 05/16/23 @ 02:29 by Pippa Tyler MD) Bilateral edema of lower extremity COPD (chronic obstructive pulmonary disease) Hypertension Surgical History History of tonsillectomy and adenoidectomy Social History Smoking Status: Former smoker Smoking Status: Former smoker alcohol intake frequency: 0-2 drinks per day Substance Use Type: does not use Exam Initial Vital Signs Initial Vital Signs: Vital Signs Temperature 97.3 F L 05/15/23 20:42 Pulse Rate 90 05/15/23 20:42 Respiratory Rate 16 05/15/23 20:42 Blood Pressure 152/115 H 05/15/23 20:42 Pulse Oximetry 97 05/15/23 20:42 Oxygen Delivery Method Room Air 05/15/23 20:42 General: Chronically ill-appearing but in no acute distress. Tangential but fluent speech Neck: No JVD, supple Respiratory: Lungs are clear to auscultation, no wheezing no rales no rhonchi. Full and symmetrical air movement Cardiac: Regular rate and rhythm no murmurs no bruits Abdomen: Soft, non incarcerated umbilical hernia, good bowel tones, no flank pain Skin: Chronic venous stasis changes bilaterally without evidence of infection Neurologic: Grossly neurologically intact with no obvious asymmetries or abnormalities, self-described burning sensation bilaterally to both lower extremities Extremities: No trauma, 2+ lower extremity edema bilaterally, it appears he has been using the Eucerin cream is recommended there is no significant scaling, dryness or tinea pedis Psych: Scattered, paranoid but able to be refocused and continue conversation Course Orders Ordered: ED Orders 05/15/23 23:45 Complete Blood Count AUTO DIFF Stat Comprehensive Metabolic Panel Stat Lactate (Lactic Acid) Stat Vital Signs Vital signs: Vital Signs - 8 hr 05/15/23 20:42 05/16/23 00:33 05/16/23 00:34 Temperature 97.3 F L Pulse Rate 90 92 H Respiratory Rate 16 18 Blood Pressure 152/115 H 131/78 Pulse Oximetry 97 98 Oxygen Delivery Method Room Air Room Air MDM - Skin/Abscess/Foreign Bdy Lab Data 05/15/23 23:45 05/15/23 23:45 Labs: Lab Results 05/15/23 Range/Units 23:45 WBC 13.4 H (4.5-11.0) X10^3/uL RBC 5.72 (4.5-5.9) X10^6/uL Hgb 17.5 (13.5-17.5) g/dL Hct 50.3 (41-53) % MCV 88.0 (80-100) fL MCH 30.6 (26-34) PG MCHC 34.8 (30-36) % RDW 13.0 (11.6-14.8) % Plt Count 375 (150-400) X10^3/uL Neut % (Auto) 71.4 (50-75) % Lymph % (Auto) 15.4 L (25-40) % [place] % (Auto) 11.4 (3-14) % Eos % (Auto) 1.3 L (2-4) % Baso % (Auto) 0.5 (0-2) % Neut # (Auto) 9500 H (1863-8562) /uL Lymph # (Auto) 2100 (7887-9158) /uL [place] # (Auto) 1500 H (0-900) /uL Eos # (Auto) 200 (0-450) /uL Baso # (Auto) 100 (0-100) /uL Sodium 139 (137-145) mmol/L Potassium 3.9 (3.4-5.1) mmol/L Chloride 95 L (98-107) mmol/L Carbon Dioxide 31 (22-32) mmol/L BUN 30 H (9-20) mg/dL Creatinine 0.65 L (0.66-1.25) mg/dL Estimated GFR > 60 (>60) mL/min BUN/Creatinine Ratio 46.2 H (6-22) Glucose 106 (80-110) mg/dL Lactate 1.0 (0.7-2.1) mmol/L Calcium 10.3 H (8.4-10.2) mg/dL Total Bilirubin 0.8 (0.2-1.3) mg/dL AST 52 (17-59) IU/L ALT 82 H (<50) IU/L Alkaline Phosphatase 107 (38-126) U/L Total Protein 9.6 H (6.3-8.2) g/dL Albumin 5.0 (3.5-5.0) g/dL Globulin 4.6 H (1.7-4.1) g/dL Albumin/Globulin Ratio 1.1 (1.0-2.8) MDM Narrative Medical decision making narrative: CC: Chronic lower extremity edema Complicating co-morbidities: Paranoid delusions, medical noncompliance Data collected from: patient, Social determinants of health that may influence the patients condition: Does not drive and has difficulty getting to medical appointments Medical records reviewed: May 13 would be [facility] documentation is reviewed today Differential considered: Chronic lower extremity edema, congestive heart failure, liver failure, kidney failure, sepsis Exam documented above, pertinent findings include: Disheveled, chronic findings, 2+ lower extremity edema with venous stasis changes and no evidence of acute infection Lab Test results independently reviewed as above. Pertinent findings: CBC shows slight leukocytosis at 13.4 with no significant anemia and no significant left shift Chemistries show normal creatinine at 0.65, mildly elevated calcium at 10.3. ALT is slightly elevated at 82 which is significantly improved from a year ago at 199. Elevated total protein at 9.6 and elevated globulin at 4.6. Treatments: 40 mg of IV Lasix Discussion: 67-year-old gentleman with chronic venous stasis changes who seemed shocked to hear that this is a chronic problem that would need chronic management rather than an acute issue that I would be able to fix this evening. We talked about continuing his Lasix, leg elevation, compression stockings, regular exercise low-salt diet diet. At this time there is no evidence of infection, renal failure, heart failure or alternate explanation that would require further hospitalization. He is quite focused on getting off all of his medications night explain to him that this is certainly his choice however if he chooses to not take his medications he also needs to understand that the ailments for which the medications were prescribed will get worse. At this point he has a friend to take him home he is medically stable and safe for discharge Discharge Plan Departure Patient Disposition: Home Clinical Impression: Bilateral edema of lower extremity Instructions: DI for Edema Due to Venous Stasis Activity Restrictions/Additional Instructions: I am sorry that you are continuing to suffer with this lower extremity swelling Unfortunately, this is a chronic problem that you are going to have to manage. This is not a problem that is going to be fixed. To best manage this problem you need to: - take your Lasix, 20 mg as prescribed, in the mornings. -keep your legs elevated if you are sitting at home -wear compression socks, even elastic tube socks or the copper stockings can be quite helpful -keeping the skin moisturized with Eucerin cream -regular exercise with walking can also be helpful Today, there is no indication of infection, severe heart failure, kidney failure or alternate explanation for your swelling that would require further workup or hospitalization You mentioned that you did have Lasix available at home, I am going to give you an additional prescription in case you run out. A prescription was electronically transmitted to [facility] in [place] While I very much appreciate your more holistic and naturopathic approach to Medicine, there are times where you need to decide if living with the side effects are worth avoiding the medications that have been prescribed by allopathic physicians. It is your body and your choices. You will need to follow-up with your primary care doctor Prescriptions: New furosemide 20 mg tablet 20 mg PO DAILY Qty: 30 3RF No Action amlodipine 10 mg tablet 10 mg PO QAM mupirocin 2 % ointment 1 applic Topical BID clobetasol 0.05 % ointment 1 applic Topical BID fluticasone propionate 50 mcg/actuation spray,suspension 1 applic Intranasal DAILY gabapentin 600 mg tablet 1,200 mg PO TID desonide 0.05 % lotion TOPICAL Patient Comments: APPLY TO AFFECTED AREAS ON FACE TWICE DAILY FOR 2 WEEKS AVOID EYES THEN USE NEEDED hydrochlorothiazide 25 mg tablet 25 mg PO DAILY oxycodone 5 mg capsule See Rx Instructions .ROUTE .COMPLEX Patient Comments: take 1-2 tablet by mouth every 4 to 6 hours if needed for pain maximum daily dose of 6 Rx Instructions: 1 -2 tabs every 4 hrs as needed for severe pain duloxetine 30 mg capsule,delayed release(DR/EC) 30 mg PO DAILY lidocaine 5 % adhesive patch,medicated Nucynta ER 50 mg tablet extended release 12 hr 50 mg PO DAILY Patient Comments: take 1 tablet by mouth every 8 hours Referrals: Leoncio Ty DO [Primary Care Provider] - Stand Alone Forms: Patient Portal/API
[2023-05-16] MEDS: FUROSEMIDE 40 MG/4 ML VIAL IV (02:25)
== END 2023-05-16 02:34 | disposition home or self-care (01) ==
PROVIDERS: Emergency Provider Emergency Medicine; PCP Family Medicine
DX: R60.0 Localized edema (principal)
CPT/HCPCS: 36415; 80053; 83605; 85025; 87040; 96374; 99284; J1940